=== PATIENT | female | born 1990 | race Caucasian/White ===

== ENCOUNTER 2016-11-04 16:57 | Emergency (ER) | payer OTHER ==
[2016-11-04 17:06] VITALS: BP 135/97
[2016-11-04] MEDS ORDERED: KETOROLAC TROMETHAMINE 30 MG/ML VIAL IM ONE (17:22)
--- NOTE | 2016-11-04 17:24 | ERNOTE ---
ENT HPI Date of Service: 11/04/16 Presenting Symptoms: other - pt injured her mandible while wrestling with her friend Time Seen by Provider: 11/04/16 17:16 - Immun/Allergies/Home Medications Immunizations: IMMUNIZATION HX Immunizations Up to Date Yes History of Influenza Vaccine No Hx Pneumococcal Vaccination No Allergies/Adverse Reactions: Allergies Allergy/AdvReac Type Severity Reaction Status Date / Time oxycodone HCl [From Percocet] Allergy Unknown Verified 11/04/16 17:13 Home Medications: HOME MEDICATIONS PARoxetine HCL [Paxil] 20 mg PO DAILY 09/06/16 [Last Taken Unknown] Naproxen [Naprosyn] 500 mg PO BID #60 tablet 11/04/16 [Last Taken Unknown] Penicillin V Potassium [Pen-Vee K] 500 mg PO QID #20 tab 11/04/16 [Last Taken Unknown] Prednisone [Deltasone] 20 mg PO BID #10 tablet 11/04/16 [Last Taken Unknown] - History of Present Illness Severity: Present: moderate Prearrival Treatment: Present: no prearrival treatment Associated Symptoms - ENT: Reports: facial pain/swelling Review of Systems - Review of Systems Constitutional: Present: See HPI EYE: Present: no symptoms reported ENT: Present: no symptoms reported Respiratory: Present: no symptoms reported Cardiology: Present: no symptoms reported Gastrointestinal/Abdominal: Present: no symptoms reported Genitourinary: Present: no symptoms reported Musculoskeletal: Present: other - tenderness along the mandible Skin: Present: no symptoms reported Neurological: Present: no symptoms reported Endocrine: Present: no symptoms reported Hematologic/Lymphatic: Present: no symptoms reported Psych: Present: no symptoms reported - Patient's Past Medical History Patient History - Medical: Anxiety, Migraines Patient History - Cardiac/Respiratory: No pertinent hx Patient History - Cancer: No Hx of Cancer, Cervical, Surgical Treatment Patient History - Surgical Procedures: Other - Family History Mother Family History - Medical: No pertinent hx Family History - Cardiac/Respiratory: No pertinent hx Father Family History - Medical: No pertinent hx - Social History Living Situations: home Smoking Status: Current every day smoker Have you smoked in the past 12 months: Yes Do you dip or chew tobacco: No Alcohol Use: rarely Drug Use: none Physical Exam - Physical Exam General Appearance: Present: wd/wn, alert, moderate distress Eye Exam: Normal inspection: bilateral, PERRL: bilateral Ears, Nose, Throat: Present: hearing grossly normal, normal pharynx, other - swelling around the right mandible, however pt has a tooth that appears to be infected at the same site Neck: Present: normal inspection, nontender Respiratory: Present: no respiratory distress, normal breath sounds, no accessory muscle use, chest nontender, lungs clear Cardiovascular/Chest: Present: regular rate, rhythm, no murmur, normal peripheral pulses Gastrointestinal/Abdominal: Present: normal bowel sounds, nontender, nondistended, soft, no organomegaly Rectal Exam: Present: deferred Back Exam: Present: normal inspection, normal range of motion Extremity Exam: Present: normal inspection, non-tender, no edema, normal range of motion Neurological Exam: Present: alert, oriented, normal mood/affect Skin Exam: Present: normal color, warm/dry Lymphatic Exam: Present: no adenopathy ED Progress - Vital Signs Patient's Vital Signs:: I have reviewed the patient's vital signs. Vital Signs: Vital Signs 11/04/16 17:04 Temperature 36 C L Pulse Rate 105 H Respiratory 14 Rate Blood Pressure 135/97 O2 Sat by Pulse 100 Oximetry - X-Ray X-Ray #1 X-Ray: facial bones Interpretation: Reviewed by me - Progress/Reassessment Chief Complaint: Facial Injury Progress:: Unchanged - Transfer of Care Expected Disposition: Discharge Plan - Plan Plan: Pt needs to see a dentist. I suspect that the swelling is coming from fairly severe dental caries with periodontitis. Departure Clinical Impression: Dental caries into pulp, Pain, dental - Departure Condition: Good Instructions: Dental Caries, [id number] Referrals: Mely Landin MD [Primary Care Provider] - Prescriptions: Naproxen [Naprosyn] 500 mg PO BID #60 tablet Penicillin V Potassium [Pen-Vee K] 500 mg PO QID #20 tab Prednisone [Deltasone] 20 mg PO BID #10 tablet
[2016-11-04] MEDS ORDERED: KETOROLAC TROMETHAMINE 60 MG/2 ML VIAL IM ONE (17:25)
== END 2016-11-04 18:02 | disposition home or self-care (01) ==
LOC: ER 16:57
DX: K02.9 Dental caries, unspecified (principal); K05.20 Aggressive periodontitis, unspecified; F17.210 Nicotine dependence, cigarettes, uncomplicated; Z85.41 Personal history of malignant neoplasm of cervix uteri

== ENCOUNTER 2016-12-22 10:14 | Emergency (ER) | payer OTHER ==
[2016-12-22 10:21] VITALS: BP 113/71
[2016-12-22] MEDS ORDERED: CYCLOBENZAPRINE HCL 10 MG TABLET PO ONE (10:29)
[2016-12-22] MEDS ORDERED: KETOROLAC TROMETHAMINE 60 MG/2 ML VIAL IM ONE ×2 (10:29→10:34)
[2016-12-22] MEDS ORDERED: CYCLOBENZAPRINE HCL 10 MG TABLET ONE (10:34)
--- NOTE | 2016-12-22 10:42 | ERNOTE ---
Upper Extremity HPI - Narrative Date of Service: 12/22/16 - General Extremities Pain Location: shoulder: left, arm: left Time Seen by Provider: 12/22/16 10:18 Source: patient Exam Limitations: no limitations - Immun/Allergies/Home Medications Immunizations: IMMUNIZATION HX Immunizations Up to Date Yes History of Influenza Vaccine No Hx Pneumococcal Vaccination No Allergies/Adverse Reactions: Allergies Allergy/AdvReac Type Severity Reaction Status Date / Time oxycodone HCl [From Percocet] Allergy Unknown Verified 12/22/16 10:20 Home Medications: HOME MEDICATIONS PARoxetine HCL [Paxil] 20 mg PO DAILY 09/06/16 [Last Taken Unknown] Alprazolam [Alprazolam Xr] 1 mg PO BID PRN 12/22/16 [Last Taken Unknown] Cyclobenzaprine HCl [Flexeril] 10 mg PO TID PRN #10 tablet 12/22/16 [Last Taken Unknown] Sertraline HCl [Zoloft] 50 mg PO DAILY 12/22/16 [Last Taken Unknown] traZODone HCL [Desyrel] 50 mg PO HS PRN 12/22/16 [Last Taken Unknown] - History of Present Illness Narrative: 26 y/o female presenting to ED with c/o difuse neck pain. states she was fine when she went to bed and woke up with this pain. denies any injury at this time. Occurred: this morning Location of Incident: home Severity: moderate Method of Injury: Reports: no apparent injury - patient states she woke up with left shoulder/neck pain this am. . Denies: fell, twisted, direct blow, fainted , motor vehicle accident Loss of Consciousness: Denies: no loss of consciousness Modifying Factors - (Improves): Reports: rest Modifying Factors - (Worsens): Reports: movement Associated Symptoms: Reports: weakness. Denies: loss of power (lt arm) Other Injuries: Reports: neck - pain with lateral flexion Review of Systems - Review of Systems Constitutional: Present: no symptoms reported EYE: Present: no symptoms reported ENT: Present: no symptoms reported Respiratory: Present: no symptoms reported Cardiology: Present: no symptoms reported Gastrointestinal/Abdominal: Present: no symptoms reported Genitourinary: Present: no symptoms reported Musculoskeletal: Present: See HPI, muscle stiffness - patient has pain to left shoulder/neck with passive ROM. describes pain as a pulling and can be sharp at times. , neck pain. Absent: joint swelling Skin: Present: no symptoms reported Neurological: Present: See HPI Endocrine: Present: no symptoms reported Hematologic/Lymphatic: Present: no symptoms reported Psych: Present: no symptoms reported - Patient's Past Medical History Patient History - Medical: Anxiety, Chronic Pain, Migraines Patient History - Cardiac/Respiratory: No pertinent hx Patient History - Cancer: No Hx of Cancer, Cervical, Surgical Treatment Patient History - Surgical Procedures: Other Patient History - Other: None LMP (Calendar): 08/24/16 - Family History Mother Family History - Medical: No pertinent hx Family History - Cardiac/Respiratory: No pertinent hx Father Family History - Medical: No pertinent hx - Social History Living Situations: home Abuse History: No History of abuse Psych History: No pertinent hx Smoking Status: Current every day smoker Have you smoked in the past 12 months: Yes Alcohol Use: rarely Drug Use: none - Immunizations Immunizations Up to Date: Yes Hx Pneumococcal Vaccination: No History of Influenza Vaccine: No Physical Exam - Physical Exam General Appearance: Present: wd/wn, alert, mild distress. Absent: lethargic Eye Exam: Normal inspection: bilateral Ears, Nose, Throat: Present: normal ENT inspection Neck: Present: limited range of motion, tender lateral - tender over mid shoulder area with lateral flexion, other - palpation of c-spine produced no pain or discomfort. . Absent: tender posterior midline Respiratory: Present: no respiratory distress, normal breath sounds, lungs clear Cardiovascular/Chest: Present: regular rate, rhythm Peripheral Pulses: N=norm/S=strong/W=weak/B=bound/A=absent: Radial (R): Normal, Radial (L): Normal, Dorsalis-pedis (R): Normal, Dorsalis-pedis (L): Normal Gastrointestinal/Abdominal: Present: normal bowel sounds Back Exam: Present: normal inspection. Absent: decreased range of motion, muscle spasm Extremity Exam: Present: normal inspection, no edema Neurological Exam: Present: alert, oriented Skin Exam: Present: normal color Lymphatic Exam: Present: no adenopathy ED Progress - Date and Time Seen: Date and Time: 12/22/16 10:46 reviewed TECHNICAL SERVICES COORDINATOR. patient does not appear to be abusing medications at this time. - Vital Signs Patient's Vital Signs:: I have reviewed the patient's vital signs. Vital Signs: Vital Signs 12/22/16 10:18 Temperature 36.1 C L Pulse Rate 103 H Respiratory 14 Rate Blood Pressure 113/71 O2 Sat by Pulse 96 Oximetry - Progress/Reassessment Chief Complaint: Upper Extremity Injury/Problem Progress:: Improved - after medication and heat application Departure Clinical Impression: Muscle strain of left shoulder region Qualifiers: Encounter type: initial encounter Qualified Code(s): S46.912A - Strain of unspecified muscle, fascia and tendon at shoulder and upper arm level, left arm , initial encounter - Departure Disposition: Home self-care Condition: Stable Instructions: Muscle Strain, [id number] Additional Instructions: continue home medications as prescribed. Apply heat or ice as need for discomfort for 20 min on and 20 min off. You may take 800mg of Motrin every 8 hours starting at 6pm tonight. Follow up with primary care provider if symptoms worsen or do not improve after several days. Referrals: Mely Landin MD [Primary Care Provider] - Prescriptions: Cyclobenzaprine HCl [Flexeril] 10 mg PO TID PRN #10 tablet PRN Reason: Muscle Spasm
--- OUTSIDE RECORDS SUMMARY | 2016-12-22 10:47 | XMS REPORT | Continuity of Care Document ---
:1990 Author Organization [facility] ([facility]) Address [place] [address] Phone [phone] Care Team Providers Name Role Phone Provider, No-Primary Care Primary Care Provider Unavailable Source Comments This disclosure is being made pursuant to the Care Everywhere program, applicable federal and state laws, and may not contain all informaitonavailable regarding this patient.[facility] ([facility]) Active Allergies and Adverse Reactions No Known Allergies Current Medications Prescription Sig. Disp. Refills Start Date End Date Status promethazine (PHENERGAN) take 25 mg by Active 25 mg tablet mouth daily. 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
== END 2016-12-22 11:29 | disposition home or self-care (01) ==
LOC: ER 10:14
DX: S46.912A Strain of unspecified muscle, fascia and tendon at shoulder and upper arm level, left arm, initial encounter (principal); F41.9 Anxiety disorder, unspecified; Z72.0 Tobacco use; G89.29 Other chronic pain

== ENCOUNTER 2017-04-02 11:22 | Emergency (ER) | payer OTHER ==
[2017-04-02] MEDS ORDERED: KETOROLAC TROMETHAMINE 60 MG/2 ML VIAL IM ONE ×2 (11:43→11:48)
--- OUTSIDE RECORDS SUMMARY | 2017-04-02 12:03 | XMS REPORT | Continuity of Care Document ---
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
[2017-04-02] MEDS ORDERED: PENICILLIN G BENZATHINE 2 ML SYRG IM ONE ×2 (12:12→12:24)
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
[2017-04-02 12:20] VITALS: BP 110/68
== END 2017-04-02 12:45 | disposition home or self-care (01) ==
LOC: ER 11:22
DX: K08.89 Other specified disorders of teeth and supporting structures (principal); J02.0 Streptococcal pharyngitis; Z72.0 Tobacco use; G89.29 Other chronic pain; F41.9 Anxiety disorder, unspecified

== ENCOUNTER 2017-04-09 16:55 | Emergency (ER) | payer OTHER ==
[2017-04-09 17:03] VITALS: BP 133/70
--- OUTSIDE RECORDS SUMMARY | 2017-04-09 17:13 | XMS REPORT | Continuity of Care Document ---
:1990 Author Organization [facility] ([facility]) Address [place] [address] Phone [phone] Care Team Providers Name Role Phone Provider, No-Primary Care Primary Care Provider Unavailable Source Comments This disclosure is being made pursuant to the Care Everywhere program, applicable federal and state laws, and may not contain all informaitonavailable regarding this patient.[facility] ([facility]) Active Allergies and Adverse Reactions [...] Taken Blood Pressure 117/73 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
--- NOTE | 2017-04-09 17:17 | ERNOTE ---
ENT [facility] Date of Service: 04/09/17 Presenting Symptoms: dental pain Time Seen by Provider: 04/09/17 17:08 Source: patient Exam Limitations: no limitations - Immun/Allergies/Home Medications Immunizations: IMMUNIZATION HX Immunizations Up to Date Yes History of Influenza Vaccine No Hx Pneumococcal Vaccination No Allergies/Adverse Reactions: Allergies Allergy/AdvReac Type Severity Reaction Status Date / Time oxycodone HCl [From Percocet] Allergy Unknown Verified 04/09/17 17:03 Home Medications: HOME MEDICATIONS Alprazolam [Alprazolam Xr] 1 mg PO BID PRN 12/22/16 [Last Taken Unknown] Cyclobenzaprine HCl [Flexeril] 10 mg PO TID PRN #10 tablet 12/22/16 [Last Taken Unknown] Sertraline HCl [Zoloft] 50 mg PO DAILY 12/22/16 [Last Taken Unknown] Cephalexin Monohydrate [Keflex] 500 mg PO QID #40 cap 04/09/17 [Last Taken Unknown] Naproxen [Naprosyn] 375 mg PO BID #30 tablet 04/09/17 [Last Taken Unknown] - History of Present Illness Severity: Present: moderate Prearrival Treatment: Present: no prearrival treatment Modifying Factors - Improves: Reports: nothing Modifying Factors - Worsens: Reports: nothing Associated Symptoms - ENT: Reports: facial pain/swelling, tooth pain Prior Treament: Reports: recently seen, treated by physician Review of Systems - Review of Systems Constitutional: Present: no symptoms reported EYE: Present: no symptoms reported ENT: Present: other - dental caries Respiratory: Present: no symptoms reported Cardiology: Present: no symptoms reported Gastrointestinal/Abdominal: Present: no symptoms reported Genitourinary: Present: no symptoms reported Musculoskeletal: Present: no symptoms reported Skin: Present: no symptoms reported Neurological: Present: no symptoms reported Endocrine: Present: no symptoms reported Hematologic/Lymphatic: Present: no symptoms reported Psych: Present: no symptoms reported - Patient's Past Medical History Patient History - Medical: Anxiety, Chronic Pain, Migraines Patient History - Cardiac/Respiratory: No pertinent hx Patient History - Cancer: No Hx of Cancer, Cervical, Surgical Treatment Patient History - Surgical Procedures: Other Patient History - Other: None LMP (females 10-50): now LMP (Calendar): 03/17/17 - Family History Mother Family History - Medical: No pertinent hx Family History - Cardiac/Respiratory: No pertinent hx Father Family History - Medical: No pertinent hx - Social History Living Situations: home Abuse History: No History of abuse Psych History: No pertinent hx Smoking Status: Current every day smoker Alcohol Use: rarely Drug Use: none - Immunizations Immunizations Up to Date: Yes Hx Pneumococcal Vaccination: No History of Influenza Vaccine: No Physical Exam - Physical Exam General Appearance: Present: mild distress Eye Exam: Normal inspection: bilateral, PERRL: bilateral, EOMI: bilateral Ears, Nose, Throat: Present: normal ENT inspection, other - dental emerald third molar lower right side Neck: Present: normal inspection, nontender Respiratory: Present: no respiratory distress, normal breath sounds, no accessory muscle use, chest nontender, lungs clear Cardiovascular/Chest: Present: regular rate, rhythm, no murmur, normal peripheral pulses Gastrointestinal/Abdominal: Present: normal bowel sounds, nontender, nondistended, soft, no organomegaly Back Exam: Present: normal inspection, normal range of motion, no CVA tenderness , no vertebral tenderness Extremity Exam: Present: normal inspection, non-tender, normal range of motion, no edema Neurological Exam: Present: alert, oriented, normal mood/affect, no motor/ sensory deficits Skin Exam: Present: normal color, warm/dry Lymphatic Exam: Present: no adenopathy ED Progress - Vital Signs Patient's Vital Signs:: I have reviewed the patient's vital signs. Vital Signs: Vital Signs 04/09/17 16:57 Temperature 37.0 C Pulse Rate 92 Respiratory 16 Rate Blood Pressure 133/70 O2 Sat by Pulse 99 Oximetry - Progress/Reassessment Chief Complaint: Dental Problem Progress:: Unchanged - Transfer of Care Expected Disposition: Discharge Departure Clinical Impression: Dental caries into pulp - Departure Disposition: Home self-care Condition: Fair Instructions: Dental Caries Referrals: Mely Landin MD [Primary Care Provider] - Prescriptions: Cephalexin Monohydrate [Keflex] 500 mg PO QID #40 cap Naproxen [Naprosyn] 375 mg PO BID #30 tablet
== END 2017-04-09 17:21 | disposition home or self-care (01) ==
LOC: ER 16:55
DX: K02.7 Dental root caries (principal); F41.9 Anxiety disorder, unspecified; G89.29 Other chronic pain; Z72.0 Tobacco use

== ENCOUNTER 2017-07-09 02:12 | Emergency (ER) | payer OTHER ==
[2017-07-09 02:22] VITALS: BP 117/89
--- NOTE | 2017-07-09 02:28 | ERNOTE ---
Medical Problem HPI - Narrative Date of Service: 07/09/17 - General Chief Complaint: General Assessment Time Seen by Provider: 07/09/17 02:24 Source: patient, police Exam Limitations: no limitations - Immun/Allergies/Home Medications Immunizations: IMMUNIZATION HX Immunizations Up to Date Yes History of Influenza Vaccine No Hx Pneumococcal Vaccination No Allergies/Adverse Reactions: Allergies oxycodone HCl [From Percocet] Allergy (Unknown, Verified 07/09/17 02:22) patient states doesn't help Home Medications: HOME MEDICATIONS Alprazolam [Alprazolam Xr] 1 mg PO BID PRN 12/22/16 [Last Taken Unknown] Sertraline HCl [Zoloft] 50 mg PO DAILY 12/22/16 [Last Taken Unknown] Naproxen [Naprosyn] 375 mg PO BID #30 tablet 04/09/17 [Last Taken Unknown] - History of Present History Narrative: Patient arrested for public intoxication, became excited and started hyperventilating once she was taken to the [facility]. She complains of anxiety. Date (Duration): 07/09/17 Time (Timing): 02:00 Timing: constant Severity: moderate Modifying Factors - (Worsens): Present: other - going to [facility] Review of Systems - Review of Systems Constitutional: Absent: recent illness, fever, chills EYE: Present: eye pain, eye discharge ENT: Absent: ear pain, ear discharge Respiratory: Absent: shortness of breath, cough Cardiology: Present: palpitations. Absent: chest pain, syncope Gastrointestinal/Abdominal: Absent: nausea, vomiting, diarrhea, abdominal pain Genitourinary: Absent: frequency, pain, dysuria Musculoskeletal: Absent: back pain, muscle pain, muscle stiffness Skin: Present: no symptoms reported Neurological: Present: anxiety, depressed, emotional problems Endocrine: Present: no symptoms reported Hematologic/Lymphatic: Present: no symptoms reported Psych: Present: anxiety, emotional problems - Patient's Past Medical History Patient History - Medical: Anxiety, Chronic Pain, Migraines Patient History - Cardiac/Respiratory: No pertinent hx Patient History - Cancer: No Hx of Cancer, Cervical, Surgical Treatment Patient History - Surgical Procedures: Other Patient History - Other: None LMP (Calendar): 03/17/17 - Family History Mother Family History - Medical: No pertinent hx Family History - Cardiac/Respiratory: No pertinent hx Father Family History - Medical: No pertinent hx - Social History Living Situations: home Abuse History: No History of abuse Psych History: No pertinent hx Smoking Status: Current every day smoker Patient requests Smoking Cessation Consult: No Initiate information on Smoking Cessation: No Alcohol Use: rarely Drug Use: none - Immunizations Immunizations Up to Date: Yes Hx Pneumococcal Vaccination: No History of Influenza Vaccine: No Physical Exam - Physical Exam General Appearance: Present: alert, mild distress, anxious, thin Head Exam: Present: normal inspection, no evidence of injury Eye Exam: PERRL: bilateral, EOMI: bilateral, Sclera injection: right, Eye drainage: right Ears, Nose, Throat: Present: normal ENT inspection Neck: Present: normal inspection, nontender Respiratory: Present: no respiratory distress, normal breath sounds, no accessory muscle use, chest nontender Cardiovascular/Chest: Present: regular rate, rhythm, no murmur, normal peripheral pulses Gastrointestinal/Abdominal: Present: normal bowel sounds, nontender, nondistended, soft Back Exam: Present: normal inspection, normal range of motion Extremity Exam: Present: normal inspection, non-tender, normal range of motion Neurological Exam: Present: alert, oriented, normal mood/affect - until I was in the room, then patient started hyperventilating again, no motor/sensory deficits Skin Exam: Present: normal color, warm/dry ED Progress - Vital Signs Patient's Vital Signs:: I have reviewed the patient's vital signs. Vital Signs: Vital Signs 07/09/17 02:19 Temperature 36.5 C Pulse Rate 112 H Respiratory 20 Rate Blood Pressure 117/89 O2 Sat by Pulse 98 Oximetry - Progress/Reassessment Chief Complaint: General Assessment Progress:: Improved - Transfer of Care Expected Disposition: Discharge - to [facility] Plan - Plan Plan: Patient refused antibiotic treatment for her eye, refused any further treatment , and signed a refusal of treatment paper. Departure - Departure Clinical Impression: Panic attack Disposition: [facility] Condition: Good Referrals: Mely Landin MD [Primary Care Provider] -
== END 2017-07-09 02:42 ==
LOC: ER 02:12
DX: F41.0 Panic disorder [episodic paroxysmal anxiety] (principal); Z85.41 Personal history of malignant neoplasm of cervix uteri; F17.200 Nicotine dependence, unspecified, uncomplicated; Z53.29 Procedure and treatment not carried out because of patient's decision for other reasons

== ENCOUNTER 2017-09-06 06:38 | Emergency (ER) | payer OTHER ==
[2017-09-06] MEDS ORDERED: NORMAL SALINE 1,000 ML IV ONE (07:21)
--- NOTE | 2017-09-06 07:21 | ERNOTE ---
<Michael Truong - Last Filed: 09/06/17 08:04> ER Female HPI Stated Complaint: LOWER ABD PAIN Time Seen by Provider: 09/06/17 07:07 Source: patient Exam Limitations: no limitations Immunizations: IMMUNIZATION HX Immunizations Up to Date Yes History of Influenza Vaccine No Hx Pneumococcal Vaccination No Allergies/Adverse Reactions: Allergies oxycodone HCl [From Percocet] Allergy (Unknown, Verified 09/06/17 06:59) patient states doesn't help Home Medications: HOME MEDICATIONS Mirtazapine [Remeron] 30 mg PO DAILY 09/06/17 [Last Taken Unknown] Nitrofurantoin/Nitrofuran Mac [Macrobid] 100 mg PO Q12H #14 capsule 09/06/17 [ Last Taken Unknown] Phenazopyridine HCl [Pyridium] 100 mg PO TID #6 tab 09/06/17 [Last Taken Unknown ] - History of Present Illness Narrative: pt states she has had periumbilical and right sided abdominal pain for 2-3 days. It waxes and wanes and has been increasing in intensity. Timing: Present: getting worse Quality: Present: moderate, severe, cramping Onset Location: Present: periumbilical Radiation: Present: RLQ Activities at Onset: Present: none Modifying Factors - (Worsens): Present: other - walking Associated Symptoms: Absent: dysuria, urinary frequency Review of Systems - Review of Systems Constitutional: Absent: recent illness EYE: Present: no symptoms reported ENT: Present: no symptoms reported Respiratory: Present: no symptoms reported Cardiology: Present: no symptoms reported Gastrointestinal/Abdominal: Present: See HPI. Absent: nausea, vomiting Genitourinary: Absent: frequency, pain, dysuria Musculoskeletal: Present: back pain - early on but resolved Skin: Present: no symptoms reported Neurological: Absent: weakness, numbness Endocrine: Absent: excessive sweating Hematologic/Lymphatic: Present: no symptoms reported Psych: Present: no symptoms reported - Patient's Past Medical History Patient History - Medical: Anxiety, Chronic Pain, Depression, Migraines Patient History - Cardiac/Respiratory: No pertinent hx Patient History - Cancer: No Hx of Cancer, Cervical, Surgical Treatment Patient History - Surgical Procedures: Other Patient History - Other: None - Family History Mother Family History - Medical: No pertinent hx Family History - Cardiac/Respiratory: No pertinent hx Father Family History - Medical: No pertinent hx - Social History Abuse History: No History of abuse Psych History: No pertinent hx Smoking Status: Current every day smoker Have you smoked in the past 12 months: Yes - Immunizations Immunizations Up to Date: Yes Hx Pneumococcal Vaccination: No History of Influenza Vaccine: No Physical Exam - Physical Exam General Appearance: Present: wd/wn, alert, no apparent distress Head Exam: Present: normal inspection, no evidence of injury Eye Exam: Normal inspection: bilateral Neck: Present: normal inspection, supple, full range of motion Respiratory: Present: no respiratory distress, lungs clear Cardiovascular/Chest: Present: regular rate, rhythm, no murmur Gastrointestinal/Abdominal: Present: tenderness - periumbilical and mid abdomen bilateral Back Exam: Present: normal inspection, normal range of motion, no CVA tenderness Extremity Exam: Present: normal inspection, normal range of motion, no edema Neurological Exam: Present: alert, oriented, normal mood/affect, no motor/ sensory deficits Skin Exam: Present: normal color, warm/dry Lymphatic Exam: Present: no adenopathy ED Progress - Vital Signs Vital Signs: Vital Signs 09/06/17 06:55 Temperature 37.5 C Pulse Rate 120 H Respiratory 14 Rate Blood Pressure 115/70 O2 Sat by Pulse 99 Oximetry - Progress/Reassessment Chief Complaint: Genitourinary Problem - Transfer of Care Physician Sign Out: Michael Truong Receiving Physician: Jarett Medrano Pending Results: Labs, X-ray results Expected Disposition: Discharge Departure Clinical Impression: Acute constipation Abdominal pain Qualifiers: Abdominal location: lower abdomen, unspecified Qualified Code(s): R10.30 - Lower abdominal pain, unspecified UTI (urinary tract infection) Qualifiers: Urinary tract infection type: acute cystitis Hematuria presence: without hematuria Qualified Code(s): N30.00 - Acute cystitis without hematuria - Departure Disposition: Home self-care Condition: Fair Instructions: Urinary Tract Infection, Adult, [id number], Constipation, Adult , [id number] Additional Instructions: Try magnesium citrate at home for constipation Referrals: Mely Landin MD [Primary Care Provider] - Prescriptions: Nitrofurantoin/Nitrofuran Mac [Macrobid] 100 mg PO Q12H #14 capsule Phenazopyridine HCl [Pyridium] 100 mg PO TID #6 tab <Jarett Medrano - Last Filed: 09/06/17 08:52> ER Female HPI Immunizations: IMMUNIZATION HX Immunizations Up to Date Yes History of Influenza Vaccine No Hx Pneumococcal Vaccination No ED Progress - Results and Orders Patient's Lab Results:: I have reviewed the patient's lab results. - Vital Signs Patient's Vital Signs:: I have reviewed the patient's vital signs. Vital Signs: Vital Signs 09/06/17 09/06/17 06:55 07:58 Temperature 37.5 C Pulse Rate 120 H 98 Respiratory 14 12 Rate Blood Pressure 115/70 91/56 O2 Sat by Pulse 99 98 Oximetry Plan - Plan Plan: Patient appears to have UTI and will be treated with antibiotics as well as anti -spasmodic. She agrees to follow-up with her family physician in 10 days. Patient also appears to have constipation and we will suggest magnesium citrate at home.
[2017-09-06 07:33] LABS: Hematocrit 33.2 % (37.0-47.0); Hemoglobin 11.1 gm/dL (12.5-16.0); Mean Cell Volume 87.8 fl (78-100); Mean Corpuscular Hemoglobin 29.4 pg (27-31); Mean Corpuscular Hgb Conc 33.4 g/dl (32-36); Mean Platelet Volume 9.5 fl (6.0-9.5); Neutrophil # 7.1 K/mm3 (1.3-6.0); Platelet Count 281 K/mm3 (150-450); Red Blood Count 3.78 M/mm3 (4.2-5.4); Red Cell Distribution Width 12.2 % (11.5-14.0); White Blood Count 9.6 K/mm3 (4.0-10.5)
[2017-09-06 07:55] LABS: Albumin * 2.8 gm/dl (3.4-5.0); Anion Gap 8.6 mmol/L (6.8-13.8); BUN/Creatinine Ratio 11.6 (9.0-21.6); Bilirubin, Total 0.3 mg/dL (0.0-1.1); Ca. Corrected For Albumin 9.1 mg/dL (8.4-10.2); Calcium * 8.5 mg/dL (7.9-10.9); Carbon Dioxide 30.2 mmol/L (24-32.6); Potassium 3.8 mmol/L (3.4-4.6); Total Protein 6.6 gm/dL (6.2-8.2)
[2017-09-06 07:55] LABS: Urine Bilirubin Negative (NEGATIVE); Urine Blood 25 /ul (NEGATIVE); Urine Ketone Negative (NEGATIVE); Urine Nitrite Negative (NEGATIVE); Urine Protein Negative (NEGATIVE); Urine Urobilinogen Normal (NORMAL)
[2017-09-06 08:05] LABS: Urine Amorphous Sediment Moderate - 2+ (NONE-FEW); Urine Appearance Slightly Cloudy; Urine Bacteria TRACE; Urine Color Yellow; Urine RBC None Seen /hpf (0-5); Urine WBC TRACE /hpf (0-5)
[2017-09-06] MEDS ORDERED: KETOROLAC TROMETHAMINE 30 MG/ML VIAL IV ONE (08:19)
[2017-09-06] MEDS ORDERED: KETOROLAC TROMETHAMINE 30 MG/ML VIAL ONE (08:26)
[2017-09-06 12:56] VITALS: BP 99/66
== END 2017-09-06 08:58 | disposition home or self-care (01) ==
LOC: ER 06:38
DX: K59.00 Constipation, unspecified (principal); N30.00 Acute cystitis without hematuria; R10.30 Lower abdominal pain, unspecified; F17.200 Nicotine dependence, unspecified, uncomplicated; F32.9 Major depressive disorder, single episode, unspecified